=== PATIENT | female | born 1950 | race Caucasian/White ===

== ENCOUNTER 2016-08-22 11:12 | Day surgery (SDC) | payer MEDICARE, OTHER ==
[~2016-08-22] VITALS: Ht 167.6 cm; Wt 58.8 kg
[2016-08-22 12:20] VITALS: BP 126/76; PULSE 63; RESP 17; TEMP 98.1; O2SAT 97
[2016-08-22] MEDS ORDERED: CHLORHEXIDINE GLUCONATE 2 % 1 PACK (2 CLOTHS) TOPICAL SCH (12:30)
[2016-08-22] MEDS ORDERED: POVIDONE IODINE 5% (ANTISEPSIS KIT) 4 APPLICATIONS EACH NARE SCH (12:30)
[2016-08-22] MEDS ORDERED: POVIDONE IODINE 5% (ANTISEPSIS KIT) 4 APPLICATIONS EACH NARE PRN (12:30)
[2016-08-22] MEDS ORDERED: METOPROLOL TARTRATE 25 MG TAB PO PRN (12:30)
[2016-08-22] MEDS ORDERED: Hold AM Insulin & AM Hypoglycemic medications in diabetic patients PRN (12:30)
[2016-08-22] MEDS ORDERED: VANCOMYCIN 1000 MG/NS 250 ML IV SCH ×2 (12:30)
[2016-08-22] MEDS ORDERED: NO Heparin, Lovenox, Coumadin at least 12 hours prior to procedure. PRN (12:30)
[2016-08-22] MEDS ORDERED: CHLORHEXIDINE GLUCONATE 2 % 1 PACK (2 CLOTHS) TOPICAL PRN (12:30)
[2016-08-22] MEDS ORDERED: ceFAZolin 2 GM PREMIX 50 ML IV SCH (12:30)
[2016-08-22] MEDS ORDERED: LACTATED RINGER'S 1000 ML IV PRN (12:30)
[2016-08-22] MEDS ORDERED: SODIUM CHLORID 0.9% 500 ML IV PRN (12:30)
[2016-08-22] MEDS ORDERED: LORazepam 1 MG TAB SL SCH (12:30)
[2016-08-22] MEDS ORDERED: INSULIN HUMAN REGULAR 1,000 UNITS/10 ML VIAL SQ PRN (12:30)
[2016-08-22] MEDS ORDERED: DILT-64 PO (12:34)
[2016-08-22] MEDS ORDERED: LISI2.5T3 PO (12:34)
[2016-08-22] MEDS ORDERED: VENL37.5 PO (12:34)
[2016-08-22] MEDS ORDERED: ASPI81TA81 (12:34)
[2016-08-22] MEDS ORDERED: METO25TA3 PO (12:34)
[2016-08-22] MEDS ORDERED: AMIO200T PO (12:34)
[2016-08-22] MEDS ORDERED: VENTAER INH (12:34)
[2016-08-22 12:38] LABS: BASOPHIL % 0.7 % (0.0-2.0); EOSINOPHIL % 0.6 % (0.0-4.0); HEMATOCRIT 36.9 % (35.0-46.0); HEMO FLAGS DIFF FINAL; LYMPH % 18.4 % (9.0-44.0); LYMPHOCYTE # 1.3 TH/MM3 (1.0-4.8); MEAN CELL VOLUME 84.6 FL (80.0-100.0); MEAN CORPUSCULAR HEMOGLOBIN 28.2 PG (27.0-34.0); MEAN CORPUSCULAR HGB CONC 33.3 % (32.0-36.0); MONO % 7.9 % (0.0-8.0); NEUT % 72.4 % (16.0-70.0); PLATELET COUNT 331 TH/MM3 (150-450); RED BLOOD COUNT 4.37 MIL/MM3 (4.00-5.30); RED CELL DISTRIBUTION WIDTH 14.2 % (11.6-17.2); WHITE BLOOD COUNT 6.9 TH/MM3 (4.0-11.0)
[2016-08-22 12:51] LABS: APTT (PATIENT) 26.6 SEC (24.3-30.1); PROTHROMBIN TIME - PATIENT 10.6 SEC (9.8-11.6)
[2016-08-22] MEDS ORDERED: MUPIROCIN 2% OINT 1 APPLIC/GM SYR NASAL SCH (13:00)
[2016-08-22] MEDS ORDERED: NS 1000 ML IV SCH (13:00)
[2016-08-22 13:08] LABS: BICARBONATE 30.5 MEQ/L (21.0-32.0); POTASSIUM 3.8 MEQ/L (3.5-5.1)
[2016-08-22] MEDS: ACETAMINOPHEN/HYDROcodone 325 MG/10 MG TAB PO PRN ×2 (14:25→20:34)
[2016-08-22] MEDS ORDERED: VANCOMYCIN HCL 1000 MG VIAL ONE (14:47)
[2016-08-22] MEDS ORDERED: LIDOCAINE HCL 2% 50 ML VIAL ONE (14:47)
[2016-08-22] MEDS ORDERED: ceFAZolin INJ 1,000 MG VIAL ONE (14:47)
[2016-08-22] MEDS ORDERED: VANCOMYCIN 500 MG VIAL ONE (14:47)
[2016-08-22] MEDS ORDERED: MIDAZOLAM HCL 2 MG/2 ML VIAL ONE (14:55)
[2016-08-22] MEDS ORDERED: DO NOT ADM ANY ANTICOAGULANT DRUGS PRN (15:00)
[2016-08-22] MEDS ORDERED: MORPHINE SULFATE 4 MG/ML INJ ONE ×2 (15:57→16:09)
[2016-08-22] MEDS ORDERED: ONDANSETRON HCL 4 MG/2 ML VIAL IV PRN (16:15)
[2016-08-22] MEDS ORDERED: PILL SPLITTER OTHER PRN (16:30)
--- NOTE | 2016-08-22 17:20 | EKG ---
Date Performed: 08/22/2016 Time Performed: 12:27:14 PTAGE: 66 years EKG: Sinus rhythm Prolonged QT interval Possible septal infarct - age undetermined Inferior/lateral ST-T changes are n onspecific Abnormal ECG NO PREVIOUS TRACING DOCTOR: Flaco Booth Interpretating Date/Time 08/22/2016 17:19:49
--- NOTE | 2016-08-22 18:04 | RADRPT ---
EXAM DATE/TIME: 08/22/2016 17:08 [place] COMPARISON: No previous studies available for comparison. INDICATIONS : Pacemaker placement. MEDICAL HISTORY : None. SURGICAL HISTORY : Pacemaker. ENCOUNTER: Initial ACUITY: 1 day PAIN SCORE: 0/10 LOCATION: Bilateral chest FINDINGS: Pacemaker device is noted with control pack over the left chest. Lungs are focally clear. No pleural effusion suspected. No pneumothorax. Cardiomediastinal contours are satisfactory for technique and pr ojection. CONCLUSION: No acute disease Davidson Eason MD on August 22, 2016 at 18:01 Board Certified Radiologist. This report was verified electronically.
--- NOTE | 2016-08-22 18:32 | MA ---
cc: GAIL CRENSHAW M.D. DATE: 08/22/2016. PROCEDURE PERFORMED: Defibrillator removal, right ventricular defibrillatory lead extraction, new right ventricular defibrillatory lead insertion and pocket revision. INDICATIONS FOR THE PROCEDURE: Mrs. Burt is a 66-year-old female with ventricular tachycardia, coronary artery disease, previous defibrillator implanted in June of 2016. The lead has poor capture. Decision for lead replacement and new lead insertion was taken. The risks, the nature and the benefits of the procedure were clearly stated to her. The risks include pneumothorax, cardiac perforation, stroke, need for open heart surgery and even . She understood and agreed to proceed. DESCRIPTION OF THE PROCEDURE IN DETAIL: After written informed consent was obtained, the patient was brought to the EP lab where she was prepped and draped in the usual sterile fashion. Conscious sedation was initiated and maintained throughout the procedure by the anesthesiologist. Once sedation was verified, the left infraclavicular area over the existing generator was anesthetized with 2% Xylocaine. Using a #11 blade scalpel, a 3-cm incision was made over the existing generator. This incision was then taken down to the deep fascial layer using Bovie cautery and blunt dissection. Once exposed, the generator was removed from the pocket. Scar tissue was removed from around the lead. The pocket was expanded. A pocket revision was performed. The right ventricular defibrillatory lead was disconnected from the generator. Scar tissue was removed from around the lead. Then subsequently the lead was unscrewed. The lead was situated at the tricuspid valve. There was tissue on the tip of the lead. The lead was unscrewed and after multiple tractions, I was able to remove the lead. A 2-0 Vicryl suture was placed at the exit point to prevent back bleeding. Then using modified Seldinger technique, the left subclavian vein was cannulated on one occasion and one guidewire was advanced. Over the wire, a 9-[place] was advanced. As the dilator and wire were removed, an active fixation right ventricular pacing and sensing defibrillatory lead was advanced. After adequate pacing and sensing thresholds were obtained, the lead was secured into the pocket using #2 Ethibond suture. At that point, the pocket was copiously irrigated using antibiotic solution. The new lead was connected to the new generator and placed into the pocket. Because of concern of the anesthesiologist about sedation, I decided not to proceed with device testing. I did proceed with wound closure. The deep fascial layer was approximated using #2-0 Vicryl suture in a continuous fashion. The subcutaneous layer was approximated using #2-0 Vicryl suture in a continuous fashion. The subcuticular layer was approximated using #2-0 Vicryl suture in a continuous fashion. Dermabond adhesive was applied to the wound followed by sterile pressure dressing. There was no complication. The patient tolerated procedure. The blood loss was minimal. EXPLANTED HARDWARE: The explanted right ventricular pacing and sensing defibrillatory lead is a Medtronic model #6935M-55, serial #[id number]. IMPLANTED HARDWARE: The implanted right ventricular pacing and sensing defibrillatory lead is a Medtronic model #6935M-62, serial #[id number]. THRESHOLDS: The right atrial pacing and sensing threshold in bipolar mode was 0.75 volts at 0.4 milliseconds. Lead impedance 340 ohms. P-wave at 3 mV. The right ventricular pacing threshold in bipolar mode was 0.75 volts at 0.5 milliseconds. Lead impedance was 550 Ohms. R wave at 7.5 millivolts. SETTINGS: The device was set in an AAI 50 with DDD50 upper rate limit 125 beats per minute. The defibrillatory portion was set for two zones, one zone for ventricular tachycardia between 170 to 240 beats per minute. Shock therapy consists of one burst of ATP, one ramp, 81%, 10-pulse, 70 second decremental followed by 20 and then 25 and all subsequent shocks at 35 joule defibrillatory shock. The second zone for ventricular fibrillation above 250 beats per minute with first therapy at 25 and all subsequent shocks at 35 joule defibrillatory shock. CONCLUSIONS: 1. Successful lead removal and extraction. 2. New right ventricular defibrillatory lead insertion. COMMENTS AND RECOMMENDATIONS: The patient is going to be transferred to the telemetry unit. He will be observed and when stable, can be discharged home. MD CORA Gonzalez/SAMEER /3:52 PM /6:11 PM
[2016-08-22 19:00] VITALS: BP 125/89; PULSE 57; RESP 14; TEMP 98; O2SAT 95
[2016-08-22 20:00] VITALS: PULSE 60
[2016-08-22] MEDS: AMIODARONE 200 MG TAB PO SCH (20:34)
[2016-08-22] MEDS: METOPROLOL TARTRATE 25 MG TAB PO SCH (20:35)
[2016-08-22 21:00] VITALS: PULSE 60
[2016-08-22] MEDS ORDERED: AMIODARONE 200 MG TAB PO SCH (21:00)
[2016-08-22 22:00] VITALS: PULSE 63
[2016-08-22] MEDS: ceFAZolin 2 GM PREMIX 50 ML IV SCH (22:51)
[2016-08-22 23:00] VITALS: BP 120/75; PULSE 54; PULSE 56; RESP 14; TEMP 98.3; O2SAT 91
[2016-08-23] VITALS (10 sets, daily range): BP systolic 135–139; BP diastolic 68–81; PULSE 52–67; RESP 12–20; TEMP 98; O2SAT 93–94
[2016-08-23] MEDS: ACETAMINOPHEN/HYDROcodone 325 MG/10 MG TAB PO PRN ×2 (04:26→09:16)
[2016-08-23] MEDS: ceFAZolin 2 GM PREMIX 50 ML IV SCH (05:30)
--- NOTE | 2016-08-23 08:32 | PD.CARD.PN ---
Subjective Subjective Remarks Moderately severe pain at incision site. No dyspnea, dizziness, palpitations. Objective Medications Item Value Date Time Diltiazem HCl 240 mg 08/23/16 0900 (Cardizem Cd) DAILY/PO Lisinopril 2.5 mg 08/23/16 0900 (Prinivil) DAILY/PO Metoprolol 25 mg 08/22/162099 Tartrate BID/PO 08/22/162034 (Lopressor) Amiodarone HCl 200 mg 08/22/162099 (Cordarone) DAILY/PO 08/22/162033 Vital Signs / I&O Vital Signs Date Time Temp Pulse Resp B/P Pulse Ox O2 Delivery O2 Flow Rate FiO2 08/23/16 08:18 65 08/23/16 08:18 98.0 67 20 139/81 94 08/23/16 07:16 64 08/23/16 06:00 58 08/23/16 05:00 64 08/23/16 04:00 64 08/23/16 03:00 56 08/23/16 03:00 98.0 56 12 135/68 93 08/23/16 02:00 56 08/23/16 01:00 52 08/23/16 00:00 53 08/22/16 23:00 98.3 54 14 120/75 91 08/22/16 23:00 56 08/22/16 22:00 63 08/22/16 21:00 60 08/22/16 20:00 60 08/22/16 19:00 98.0 57 14 125/89 95 08/22/16 15:53 99 Room Air 08/22/16 12:20 98.1 63 17 126/76 97 I/O 08/22/16 08/22/16 08/22/16 08/23/16 08/23/16 08/23/16 07:00 15:00 23:00 07:00 15:00 23:00 Intake Total 700 ml Output Total 600 ml Balance 100 ml Intake Oral 480 ml IV Total 220 ml Output Urine Total 600 ml Physical Exam ICD site clean, dry, intact, moderately tender, minimal hematoma. No drainage. Laboratory Laboratory Tests Test 08/22/16 12:10 White Blood Count 6.9 TH/MM3 Red Blood Count 4.37 MIL/MM3 Hemoglobin 12.3 GM/DL Hematocrit 36.9 % Mean Corpuscular Volume 84.6 FL Mean Corpuscular Hemoglobin 28.2 PG Mean Corpuscular Hemoglobin 33.3 % Concent Red Cell Distribution Width 14.2 % Platelet Count 331 TH/MM3 Mean Platelet Volume 8.7 FL Neutrophils (%) (Auto) 72.4 % Lymphocytes (%) (Auto) 18.4 % Monocytes (%) (Auto) 7.9 % Eosinophils (%) (Auto) 0.6 % Basophils (%) (Auto) 0.7 % Neutrophils # (Auto) 5.0 TH/MM3 Lymphocytes # (Auto) 1.3 TH/MM3 Monocytes # (Auto) 0.5 TH/MM3 Eosinophils # (Auto) 0.0 TH/MM3 Basophils # (Auto) 0.0 TH/MM3 CBC Comment DIFF FINAL Differential Comment Prothrombin Time 10.6 SEC Prothromb Time International 1.0 RATIO Ratio Activated Partial 26.6 SEC Thromboplast Time Sodium Level 143 MEQ/L Potassium Level 3.8 MEQ/L Chloride Level 106 MEQ/L Carbon Dioxide Level 30.5 MEQ/L Anion Gap 7 MEQ/L Blood Urea Nitrogen 15 MG/DL Creatinine 0.80 MG/DL Estimat Glomerular Filtration 72 ML/MIN Rate Random Glucose 81 MG/DL Calcium Level 9.3 MG/DL Blood Type O POSITIVE Antibody Screen NEGATIVE Imaging Last 48 hours Impressions Chest X-Ray 08/22/16 0000 Signed Impressions: Service Date/Time: August 17:08 - CONCLUSION: No acute disease Davidson Eason MD Assessment and Plan Problem List: (1) S/P implantation of automatic cardioverter/defibrillator (AICD) Assessment and Plan: Stable overnight. ICD site stable, minimal hematoma. ICD re-interrogation shows stable pacing/defibrillatory parameters. To discharge home today, same home medications plus Levaquin 500 mg qd for 5 days, Vicodin 1-2 PRN q 4-6 hours, one week f/u for incision recheck. Code Status full code Discussed Condition With patient Flaco Booth MD Aug 23, 2016 08:32
[2016-08-23] MEDS ORDERED: LEVA500T PO (08:35)
[2016-08-23] MEDS ORDERED: DILTIAZEM-CD 240 MG CAP ER PO SCH (09:00)
[2016-08-23] MEDS ORDERED: VENLAFAXINE HCL XR 75 MG CAP PO SCH (09:00)
[2016-08-23] MEDS ORDERED: LISINOPRIL 5 MG TAB PO SCH (09:00)
[2016-08-23] MEDS: AMIODARONE 200 MG TAB PO SCH (09:15)
[2016-08-23] MEDS: METOPROLOL TARTRATE 25 MG TAB PO SCH (09:16)
--- NOTE | 2016-08-23 09:37 | EKG ---
Date Performed: 08/23/2016 Time Performed: 05:14:00 PTAGE: 66 years EKG: Sinus bradycardia Possible septal infarct - age undetermined Abnormal ECG PREVIOUS TRACING : 08/22/2016 12.27 No significant change from previous tracing noted. DOCTOR: Flaco Booth Interpretating Date/Time 08/23/2016 09:36:17
== END 2016-08-23 10:55 | disposition home or self-care (01) ==
LOC: HCAT 11:12 → HDIC 11:14 → HCIS 19:00 → HCAT 08-23 10:55
PROVIDERS: ATTEND Internal Medicine Interventional Cardiology
DX: T82.120A Displacement of cardiac electrode, initial encounter (principal); I11.0 Hypertensive heart disease with heart failure; I50.30 Unspecified diastolic (congestive) heart failure; I47.2 Ventricular tachycardia; I08.1 Rheumatic disorders of both mitral and tricuspid valves; I25.10 Atherosclerotic heart disease of native coronary artery without angina pectoris; I42.8 Other cardiomyopathies; R06.00 Dyspnea, unspecified; F17.210 Nicotine dependence, cigarettes, uncomplicated; Z79.82 Long term (current) use of aspirin
CPT/HCPCS: 00530; 33216; 33244; 71010; 80048; 85025; 85610; 85730; 86850; 86900; 86901; 93005; C1777; J0690; J2250; J2270; J3010; J3370; 33217; 33249; C1895